=== PATIENT | female | born 1955 | race Hispanic/Latino ===

== ENCOUNTER 2018-06-14 09:31 | Observation (INO) | payer BC ==
[2018-06-14] MEDS ORDERED: Sodium Chloride 0.9% 1,000 ML IV STA (10:03)
--- NOTE | 2018-06-14 10:08 | ED PDOC ---
Arrival/HPI - General Chief Complaint: Abdominal Pain Time Seen by Provider: 06/14/18 10:03 Historian: Patient - History of Present Illness Narrative History of Present Illness (Text): 06/14/18 10:05 62 y/o female, pmh including htn, cholecystomy history, nkda, post menopausal, c/o upper abdominal pain with nausea started last night after dinner. Pt. stated that she has upper abdominal pain for over 6 months, more worsened last night, associated with nausea, no vomiting, no fever or chills, no headache or night sweat, no dizziness, no change in vision, no other medical or psychological complaints. Past Medical History - Provider Review Nursing Documentation Reviewed: Yes - Cardiac Hx Cardiac Disorders: Yes Hx Hypertension: Yes - Pulmonary Hx Respiratory Disorders: No - Neurological Hx Neurological Disorder: No - HEENT Hx HEENT Disorder: No - Renal Hx Renal Disorder: No - Endocrine/Metabolic Hx Endocrine Disorders: Yes Hx Diabetes Mellitus Type 2: Yes - Hematological/Oncological Hx Blood Disorders: No - Integumentary Hx Dermatological Disorder: No - Musculoskeletal/Rheumatological Hx Musculoskeletal Disorders: No - Gastrointestinal Hx Gastrointestinal Disorders: Yes Hx Fatty Liver Disease: Yes - Genitourinary/Gynecological Hx Genitourinary Disorders: No - Psychiatric Hx Psychophysiologic Disorder: No Hx Substance Use: No - Surgical History Hx Cholecystectomy: Yes Family/Social History - Physician Review Nursing Documentation Reviewed: Yes Family/Social History: Unknown Family HX Smoking Status: Never Smoked Hx Alcohol Use: No Hx Substance Use: No Allergies/Home Meds Allergies/Adverse Reactions: Allergies No Known Allergies Allergy (Verified 06/14/18 09:33) Home Medications: Home Meds Medication Instructions Recorded Confirmed Telmisartan/Hydrochlorothiazid 1 tab PO DAILY 06/14/18 06/14/18 [Micardis Hct 80-12.5 mg Tablet] Review of Systems - Review of Systems Constitutional: absent: Fatigue, Fevers Eyes: absent: Vision Changes ENT: absent: Hearing Changes Respiratory: absent: SOB, Cough Cardiovascular: absent: Chest Pain Gastrointestinal: Abdominal Pain, Nausea. absent: Diarrhea, Vomiting Musculoskeletal: absent: Arthralgias, Back Pain, Neck Pain Skin: absent: Rash, Pruritis Neurological: absent: Headache, Dizziness Psychiatric: absent: Anxiety, Depression, Suicidal Ideation Physical Exam Vital Signs Reviewed: Yes Vital Signs Temp Pulse Resp BP Pulse Ox 06/14/18 09:33 98.5 F 101 H 16 143/82 97 Temperature: Afebrile Blood Pressure: Normal Pulse: Tachycardic Respiratory Rate: Normal Appearance: Positive for: Well-Appearing, Non-Toxic, Comfortable Pain Distress: Moderate Mental Status: Positive for: Alert and Oriented X 3 - Systems Exam Head: Present: Atraumatic, Normocephalic Pupils: Present: PERRL Extroacular Muscles: Present: EOMI Conjunctiva: Present: Normal Mouth: Present: Moist Mucous Membranes Neck: Present: Normal Range of Motion Respiratory/Chest: Present: Clear to Auscultation, Good Air Exchange. No: R espiratory Distress, Accessory Muscle Use Cardiovascular: Present: Regular Rate and Rhythm, Normal S1, S2. No: Murmurs Abdomen: Present: Tenderness (epigastric and upper region). No: Distention, Peritoneal Signs, Rebound, Guarding, Hernias, Scars Back: Present: Normal Inspection Upper Extremity: Present: Normal Inspection. No: Cyanosis, Edema Lower Extremity: Present: Normal Inspection. No: Edema Neurological: Present: GCS=15, CN II-XII Intact, Speech Normal Skin: Present: Warm, Dry, Normal Color. No: Rashes Psychiatric: Present: Alert, Oriented x 3, Normal Insight, Normal Concentration Medical Decision Making ED Course and Treatment: 06/14/18 10:09 -Labs/ua -ekg -ct abdomen and pelvis -IVF/pepcid/zofran -Observe and reassess 06/14/18 13:33 -EKG: NSR @ 93 BPM, no ST elevation or depression, no T wave inversion -CT abdomen and pelvis: Mild thickening of the proximal gastric body can be seen with gastritis. Mild hazy change in the mesentery. This is a nonspecific finding which can be seen with mesenteric edema, lymphedema, hemorrhage and infiltration with inflammatory or neoplastic cells. -Labs show no acute findings except wbc 13 -Lipase is normal -Mg 1.6 (mgsu 1gm IV ordered) -Trop after 24 hours is negative -UA show no UTI -Pt. feels mildly better but still having pain, clinical suspicious of bleeding is low and likely gastritis (discussed and agreed by Dr. Lopez), hemodynamically stable, all labs and radiology studies discussed with the patient, recommend observation admission over night and GI consult on this case. Her pmd is Dr. Vega and doesn't come to this facility, paging Dr. Zamorano clinical rn liaison for admission. 06/14/18 13:40 -I spoke to Dr. Zamorano about this case/discussed about the labs/radiology result, agreed to admit to her service and routine consult with Dr. Tristen Cast for consult which I ordered. - Lab Interpretations I have reviewed the lab results: Yes - RAD Interpretation Radiology Orders: 06/14/18 10:03 ABD & PELVIS IV CONTRAST ONLY [CT] Stat Date of service: 06/14/2018 PROCEDURE: CT Abdomen and Pelvis with contrast HISTORY: vomiting/upper abdominal pain COMPARISON: None. TECHNIQUE: Contrast dose: 100 mL Omnipaque 350 Radiation dose: Total exam DLP = 361.62 mGy-cm. This CT exam was performed using one or more of the following dose reduction techniques: Automated exposure control, adjustment of the mA and/or kV according to patient size, and/or use of iterative reconstruction technique. FINDINGS: LOWER THORAX: Cardiomegaly. Coronary arterial and valvular calcifications. No focal consolidation or pleural effusion. LIVER: Hepatic steatosis. No gross lesion or ductal dilatation. GALLBLADDER AND BILE DUCTS: Prior cholecystectomy with surgical clips in place. PANCREAS: Unremarkable. No gross lesion or ductal dilatation. SPLEEN: Unremarkable. ADRENALS: Unremarkable. No mass. KIDNEYS AND URETERS: Unremarkable. No hydronephrosis. No solid mass. VASCULATURE: Unremarkable. No aortic aneurysm. Mild aortic atherosclerotic calcifications. BOWEL: Small hiatal hernia. Mild thickening of the proximal gastric body. Colonic diverticulosis. No obstruction. No gross mural thickening. APPENDIX: Normal appendix. PERITONEUM: Small fat containing umbilical hernia. Mild hazy change in the mesentery, nonspecific. No free fluid. No free air. LYMPH NODES: Unremarkable. No enlarged lymph nodes. BLADDER: Unremarkable. REPRODUCTIVE: Unremarkable. BONES: No acute fracture. OTHER FINDINGS: None. IMPRESSION: Mild thickening of the proximal gastric body can be seen with gastritis. Mild hazy change in the mesentery. This is a nonspecific finding which can be s een with mesenteric edema, lymphedema, hemorrhage and infiltration with inflammatory or neoplastic cells. Data Migration Consultant: Radiologist - EKG Interpretation EKG Interpretation (Text): 06/14/18 10:26 NSR @ 93 BPM, no ST elevation or depression, no T wave inversion Interpreted by ED Physician: Yes Type: 12 lead EKG - Medication Orders Current Medication Orders: Famotidine (Pepcid) 20 mg IVP STAT STA Stop: 06/14/18 10:04 Sodium Chloride (Sodium Chloride 0.9%) 1,000 mls @ 999 mls/hr IV .Q1H1M STA Stop: 06/14/18 11:03 Ondansetron HCl (Zofran Inj) 4 mg IVP STAT STA Stop: 06/14/18 10:04 - PA / UPS DRIVER / Resident Statement MD/DO has reviewed & agrees with the documentation as recorded. Disposition/Present on Arrival - Present on Arrival Any Indicators Present on Arrival: No History of DVT/PE: No History of Uncontrolled Diabetes: No Urinary Catheter: No History of Decub. Ulcer: No History Surgical Site Infection Following: None - Disposition Have Diagnosis and Disposition been Completed?: Yes Diagnosis: Hypomagnesemia, Leukocytosis, Abnormal CT of the abdomen, Gastritis Disposition: HOSPITALIZED Disposition Time: 13:35 Patient Plan: Admission, Observation Patient Problems: Current Active Problems Problem Status Onset Hypomagnesemia Acute Leukocytosis Acute Abnormal CT of the abdomen Acute Gastritis Acute Condition: STABLE Referrals: Kirk Vega MD [Primary Care Provider] - Follow up with primary Forms: [employer] (Spanish)
[2018-06-14 10:29] LABS: EOS % 0.2 % (1.5-5.0); GRAN # 11.56 (1.4-6.5); GRAN % 89.1 % (50.0-68.0); HEMOGLOBIN 15.9 g/dL (12.0-16.0); LYMPH # 1.1 (1.2-3.4); LYMPH % 8.5 % (22.0-35.0); MEAN CELL VOLUME 82.1 fl (80.0-105.0); MEAN CORPUSCULAR HEMOGLOBIN 28.4 pg (25.0-35.0); MEAN CORPUSCULAR HGB CONC 34.6 g/dl (31.0-37.0); MEAN PLATELET VOLUME 8.8 fl (7.0-11.0); MONO # 0.3 (0.1-0.6); MONO % 2.2 % (1.0-6.0); RBC 5.6 10^6/uL (3.5-6.1); RED CELL DISTRIBUTION WIDTH 12.8 % (11.5-14.5)
[2018-06-14 10:39] LABS: PH,URINE 5.5 (4.7-8.0); URINE BILIRUBIN NEGATIVE (NEGATIVE); URINE BLOOD NEGATIVE (NEGATIVE); URINE GLUCOSE (UA) 250 mg/dL (NEGATIVE); URINE LEUKOCYTE ESTERASE NEGATIVE Leu/uL (NEGATIVE); URINE PROTEIN NEGATIVE mg/dL (<30 mg/dL); URINE UROBILINOGEN 0.2 E.U./dL (<1 E.U./dL)
[2018-06-14 10:41] LABS: URINE APPEARANCE CLEAR (CLEAR); URINE COLOR YELLOW (YELLOW)
[2018-06-14 10:52] LABS: ALB/GLOB RATIO 1.1 (1.1-1.8); ALBUMIN 4.3 g/dL (3.0-4.8); ALT/SGPT 52 U/L (7-56); AST/SGOT 35 U/L (14-36); BLOOD UREA NITROGEN 19 mg/dL (7-21); CALCIUM 9.1 mg/dL (8.4-10.5); GFR NON-AFRICAN AMERICAN > 60; LIPASE 71 U/L (23-300)
[2018-06-14 11:02] LABS: TROPONIN I < 0.01 ng/mL
[2018-06-14] MEDS ORDERED: Magnesium Sulfate 1 gm in D5W 1 GM/100 ML BAG IVPB ONE (11:09)
[2018-06-14] MEDS ORDERED: Iohexol 350 MG/100 ML VIAL ONE (12:29)
--- NOTE | 2018-06-14 13:14 | CT ---
Date of service: 06/14/2018 PROCEDURE: CT Abdomen and Pelvis with contrast HISTORY: vomiting/upper abdominal pain COMPARISON: None. TECHNIQUE: Contrast dose: 100 mL Omnipaque 350 Radiation dose: Total exam DLP = 361.62 mGy-cm. This CT exam was performed using one or more of the following dose reduction techniques: Automated exposure control, adjustment of the mA and/or kV according to patient size, and/or use of iterative reconstruction technique. FINDINGS: LOWER THORAX: Cardiomegaly. Coronary arterial and valvular calcifications. No focal consolidation or pleural effusion. LIVER: Hepatic steatosis. No gross lesion or ductal dilatation. GALLBLADDER AND BILE DUCTS: Prior cholecystectomy with surgical clips in place. PANCREAS: Unremarkable. No gross lesion or ductal dilatation. SPLEEN: Unremarkable. ADRENALS: Unremarkable. No mass. KIDNEYS AND URETERS: Unremarkable. No hydronephrosis. No solid mass. VASCULATURE: Unremarkable. No aortic aneurysm. Mild aortic atherosclerotic calcifications. BOWEL: Small hiatal hernia. Mild thickening of the proximal gastric body. Colonic diverticulosis. No obstruction. No gross mural thickening. APPENDIX: Normal appendix. PERITONEUM: Small fat containing umbilical hernia. Mild hazy change in the mesentery, nonspecific. No free fluid. No free air. LYMPH NODES: Unremarkable. No enlarged lymph nodes. BLADDER: Unremarkable. REPRODUCTIVE: Unremarkable. BONES: No acute fracture. OTHER FINDINGS: None. IMPRESSION: Mild thickening of the proximal gastric body can be seen with gastritis. Mild hazy change in the mesentery. This is a nonspecific finding which can be seen with mesenteric edema, lymphedema, hemorrhage and infiltration with inflammatory or neoplastic cells.
[2018-06-14] MEDS ORDERED: Morphine 4 mg/ml ISec IVP STA (13:30)
[2018-06-14] MEDS: Sodium Chloride 0.9% 1,000 ML IV SCH (13:45)
[2018-06-14 18:05] VITALS: BMI 25.4
[2018-06-14] MEDS ORDERED: Influenza Vaccine 60 mcg/0.5 mL SYR (4YR UP) IM ONE (18:05)
[2018-06-14] MEDS ORDERED: Pneumococcal 23-Valent Vaccine IM ONE (18:05)
[2018-06-14] MEDS ORDERED: HYDROmorphone 0.5 mg/0.5 ml ISec IVP PRN (19:48)
[2018-06-15] MEDS: Sodium Chloride 0.9% 1,000 ML IV SCH ×3 (06:23→21:40)
--- NOTE | 2018-06-15 09:34 | CARD ---
APPROVED REPORT Date of service: 06/14/2018 EKG Measurement Heart [id number] <Conclusion> Normal sinus rhythm Inferior infarct, age undetermined NSSTW changes Prolonged QTc
--- NOTE | 2018-06-15 14:56 | CP.PCM.CON ---
<Courtney Easley - Last Filed: 06/15/18 14:56> History of Present Illness - History of Present Illness History of Present Illness: Surgery: Dr. Rao Reason for consult: possible SBO CC: epigastric pain, discomfort after eating HPI: Patient is a 62 y/o F who presented to ER complaining of persistent epigastric discomfort/pain that started last night after eating a sea [employer] dinne r. She states the pain has been present for a few months but acutely got worse after her meal last night. She reports associated nausea but denies vomiting. She reports passing flatus as well as belching and also reports normal bowel movements. She denies diarrhea, fever, or chills. She reports about a 7-10lbs weight loss over the pass year which she attributes to her diet change to pescetarian. She denies having prior EGD or colonoscopy. Currently, she states her symptoms have improved and she is tolerating the regular diet ordered for her w/o n/v. She denies having prior symptoms of reflux or gastritis requiring OTC acid reducing medication. PMH: HTN PSH: partial hysterectomy, lap raquel NKDA Social: social tobacco use as a young adult (20s) but denies recent/current use, social ETOH use current, denies drug use Review of Systems - Review of Systems All systems: reviewed and no additional remarkable complaints except Review of Systems: unless stated in HPI - Constitutional Constitutional: absent: Anorexia, Chills, Fever, Night Sweats - EENT Eyes: absent: Blurred Vision, Change in Vision Nose/Mouth/Throat: absent: Epistaxis, Nasal Congestion - Breasts Breasts: absent: Change in Shape, Mass - Cardiovascular Cardiovascular: absent: Chest Pain, Edema - Respiratory Respiratory: absent: Cough, Wheezing - Gastrointestinal Gastrointestinal: Abdominal Pain, Belching, Nausea. absent: Bloating, Change in Bowel Habits, Change in Stool Character, Constipation, Cramping, Diarrhea, Dyspepsia, Dysphagia, Early Satiety, Excessive Flatus, Heartburn, Hematemesis, Hematochezia, Melena, Vomiting - Genitourinary Genitourinary: absent: Hematuria, Pyuria - Reproductive: Female Reproductive:Female: Amenorrhea - Menstruation Menstruation: S/P Hysterectomy - Musculoskeletal Musculoskeletal: absent: Back Pain, Neck Pain - Integumentary Integumentary: absent: Rash, Wounds - Neurological Neurological: absent: Dizziness, Headaches - Psychiatric Psychiatric: absent: Anxiety, Behavioral Changes, Change in Appetite - Endocrine Endocrine: absent: Change in Body Appearance, Change in Libido, Excessive Sweating, Palpitations, Polydipsia, Polyphagia - Hematologic/Lymphatic Hematologic: absent: Easy Bleeding, Easy Bruising Past Patient History - Past Social History Smoking Status: Former Smoker - CARDIAC Hx Cardiac Disorders: Yes Hx Hypertension: Yes - PULMONARY Hx Respiratory Disorders: Yes (USED TO SMOKE IN HER TEENS.QUIT) - NEUROLOGICAL Hx Neurological Disorder: No - HEENT Hx HEENT Problems: No - RENAL Hx Chronic Kidney Disease: No - ENDOCRINE/METABOLIC Hx Endocrine Disorders: Yes Hx Diabetes Mellitus Type 2: Yes - HEMATOLOGICAL/ONCOLOGICAL Hx Blood Disorders: No - INTEGUMENTARY Hx Dermatological Problems: No - MUSCULOSKELETAL/RHEUMATOLOGICAL Hx Musculoskeletal Disorders: No Hx Falls: No - GASTROINTESTINAL Hx Gastrointestinal Disorders: Yes (GASTRITIS 06-14-18) Other/Comment: FATTY LIVER - GENITOURINARY/GYNECOLOGICAL Hx Genitourinary Disorders: Yes (HYSTERECTOMY) - PSYCHIATRIC Hx Psychophysiologic Disorder: No Hx Substance Use: No - SURGICAL HISTORY Hx Surgeries: Yes Hx Cholecystectomy: Yes Hx Hysterectomy: Yes Meds Allergies/Adverse Reactions: Allergies Allergy/AdvReac Type Severity Reaction Status Date / Time No Known Allergies Allergy Verified 06/14/18 14:30 - Medications Medications: Current Medications Acetaminophen (Tylenol 325mg Tab) 650 mg PO Q4H PRN PRN Reason: pain fever Aspirin (Aspirin Chewable) 81 mg PO DAILY [facility] Last Admin: 06/15/18 09:08 Dose: 81 mg Hydrochlorothiazide (Microzide) 12.5 mg PO DAILY [facility] Last Admin: 06/15/18 09:09 Dose: 12.5 mg Hydromorphone HCl (Dilaudid) 0.5 mg IVP Q4H PRN PRN Reason: Pain, Mild (1-3) Sodium Chloride (Sodium Chloride 0.9%) 1,000 mls @ 100 mls/hr IV .Q10H [facility] Last Admin: 06/15/18 09:10 Dose: 100 mls/hr Losartan Potassium (Cozaar) 100 mg PO DAILY [facility] Last Admin: 06/15/18 09:08 Dose: 100 mg Ondansetron HCl (Zofran Inj) 4 mg IVP Q6 PRN PRN Reason: Nausea/Vomiting Pantoprazole Sodium (Protonix Inj) 40 mg IVP DAILY [facility] Last Admin: 06/15/18 09:09 Dose: 40 mg Physical Exam - Constitutional Appears: Well, Non-toxic, No Acute Distress - Head Exam Head Exam: ATRAUMATIC, NORMOCEPHALIC - Eye Exam Eye Exam: EOMI, Normal appearance - ENT Exam ENT Exam: Mucous Membranes Moist - Neck Exam Neck exam: Negative for: Lymphadenopathy - Respiratory Exam Respiratory Exam: Clear to Auscultation Bilateral, NORMAL BREATHING PATTERN. absent: Respiratory Distress - Cardiovascular Exam Cardiovascular Exam: REGULAR RHYTHM. absent: Tachycardia - GI/Abdominal Exam GI & Abdominal Exam: Soft. absent: Distended, Guarding, Hernia, Rebound, Rigid, Tenderness - Rectal Exam Rectal Exam: Deferred - Extremities Exam Extremities exam: Positive for: normal inspection. Negative for: calf tenderness - Neurological Exam Neurological exam: Alert, Oriented x3 - Psychiatric Exam Psychiatric exam: Normal Affect, Normal Mood - Skin Skin Exam: Dry, Normal Color, Warm Results - Vital Signs Recent Vital Signs: Last Vital Signs Temp 97.5 F L 06/15/18 06:00 Pulse 85 06/15/18 06:00 Resp 18 06/15/18 06:00 BP 128/84 06/15/18 06:00 Pulse Ox 98 06/15/18 06:00 - Labs Result Diagrams: 06/14/18 10:10 06/14/18 10:10 Assessment & Plan - Assessment and Plan (Free Text) Assessment: 62 y/o female w/ acute worsening of chronic epigastric pain, gastritis vs enteritis Plan: -CT findings concerning for inflammation r/o neoplasm at greater curve of stomach, no evidence of intestinal obstruction -patient clinically not obstructed as she is passing flatus, +BM, and tolerating diet -cont diet as tolerated -recommending EGD and Colonoscopy considering chronic symptoms and CT scan findings -no acute surgical intervention at this time -further recs per Dr. Rao [facility], [place] PGY4 <Serene Arechiga V - Last Filed: 06/15/18 17:38> Meds - Medications Medications: Current Medications Acetaminophen (Tylenol 325mg Tab) 650 mg PO Q4H PRN PRN Reason: pain fever Aspirin (Aspirin Chewable) 81 mg PO DAILY [facility] Last Admin: 06/15/18 09:08 Dose: 81 mg Hydrochlorothiazide (Microzide) 12.5 mg PO DAILY [facility] Last Admin: 06/15/18 09:09 Dose: 12.5 mg Hydromorphone HCl (Dilaudid) 0.5 mg IVP Q4H PRN PRN Reason: Pain, Mild (1-3) Sodium Chloride (Sodium Chloride 0.9%) 1,000 mls @ 100 mls/hr IV .Q10H [facility] Last Admin: 06/15/18 09:10 Dose: 100 mls/hr Losartan Potassium (Cozaar) 100 mg PO DAILY [facility] Last Admin: 06/15/18 09:08 Dose: 100 mg Ondansetron HCl (Zofran Inj) 4 mg IVP Q6 PRN PRN Reason: Nausea/Vomiting Pantoprazole Sodium (Protonix Inj) 40 mg IVP DAILY [facility] Last Admin: 06/15/18 09:09 Dose: 40 mg Results - Vital Signs Recent Vital Signs: Last Vital Signs Temp 98.6 F 06/15/18 16:38 Pulse 84 06/15/18 16:38 Resp 20 06/15/18 16:38 BP 130/89 06/15/18 16:38 Pulse Ox 95 06/15/18 16:38 - Labs Result Diagrams: 06/14/18 10:10 06/14/18 10:10 Attending/Attestation - Attestation I have personally seen and examined this patient.: Yes I have fully participated in the care of the patient.: Yes I have reviewed all pertinent clinical information: Yes Notes (Text): This is an addendum to GI consult report dictated by the GI Fellow.The patient was seen and examined earlier. Medical records, lab studies, imagings were revi ewed. Last 24 hours events reviewed. Agreed with the above treatment plan as outlined in GI Fellow 's notes with the addition of the following this patient was admitted with acute onset abdominal pain history of occasional cramping discomfort No fever Never had EGD or colonoscopy CT scan was reviewed loops of dilated small bowel seen in the lower abdo more towards the rightside, mild mesenteric edema nonspecific, distended stomach mild thickening of the gastric wall in the body Patient is presently on regular diet Rule out partial small bowel obstruction rule out gastric lesion Would recommend surgical consult EGD in the a.m. Elective colonoscopy evaluation Would consider MRV to further evaluate small bowel after reviewing the above workup 06/15/18 17:34
--- NOTE | 2018-06-15 16:55 | CP.PCM.CON ---
<Gina Carter - Last Filed: 06/15/18 16:52> History of Present Illness - History of Present Illness History of Present Illness: GI Fellow PGY5 Consult Note This is a 62 y/o F who presented to ER complaining of persistent epigastric discomfort/pain that started last night after eating dinner. She reports eating [place] ad no one else in her family got sick. She states she has a similar discomfort/pain present for few months but got worse last night. She reports passing flatus as well as belching and also reports normal bowel movements. She denies diarrhea, fever, or chills. She denies having prior EGD or colonoscopy. Currently, she states her symptoms have improved and she is tolerating the regular diet ordered for her w/o n/v. ROS: A 12pt ROS was negative except as above PMH: As stated in HPI PSH: partial hysterectomy, lap raquel SHx: social tobacco use as a young adult (20s) but denies recent/current use, social ETOH use current, denies drug use FHx: Neg for colon/gastric cancer Past Patient History - Past Social History Smoking Status: Former Smoker - CARDIAC Hx Cardiac Disorders: Yes Hx Hypertension: Yes - PULMONARY Hx Respiratory Disorders: Yes (USED TO SMOKE IN HER TEENS.QUIT) - NEUROLOGICAL Hx Neurological Disorder: No - HEENT Hx HEENT Problems: No - RENAL Hx Chronic Kidney Disease: No - ENDOCRINE/METABOLIC Hx Endocrine Disorders: Yes Hx Diabetes Mellitus Type 2: Yes - HEMATOLOGICAL/ONCOLOGICAL Hx Blood Disorders: No - INTEGUMENTARY Hx Dermatological Problems: No - MUSCULOSKELETAL/RHEUMATOLOGICAL Hx Musculoskeletal Disorders: No Hx Falls: No - GASTROINTESTINAL Hx Gastrointestinal Disorders: Yes (GASTRITIS 06-14-18) Other/Comment: FATTY LIVER - GENITOURINARY/GYNECOLOGICAL Hx Genitourinary Disorders: Yes (HYSTERECTOMY) - PSYCHIATRIC Hx Psychophysiologic Disorder: No Hx Substance Use: No - SURGICAL HISTORY Hx Surgeries: Yes Hx Cholecystectomy: Yes Hx Hysterectomy: Yes Meds Allergies/Adverse Reactions: Allergies Allergy/AdvReac Type Severity Reaction Status Date / Time No Known Allergies Allergy Verified 06/14/18 14:30 - Medications Medications: Current Medications Acetaminophen (Tylenol 325mg Tab) 650 mg PO Q4H PRN PRN Reason: pain fever Aspirin (Aspirin Chewable) 81 mg PO DAILY [facility] Last Admin: 06/15/18 09:08 Dose: 81 mg Hydrochlorothiazide (Microzide) 12.5 mg PO DAILY [facility] Last Admin: 06/15/18 09:09 Dose: 12.5 mg Hydromorphone HCl (Dilaudid) 0.5 mg IVP Q4H PRN PRN Reason: Pain, Mild (1-3) Sodium Chloride (Sodium Chloride 0.9%) 1,000 mls @ 100 mls/hr IV .Q10H [facility] Last Admin: 06/15/18 09:10 Dose: 100 mls/hr Losartan Potassium (Cozaar) 100 mg PO DAILY [facility] Last Admin: 06/15/18 09:08 Dose: 100 mg Ondansetron HCl (Zofran Inj) 4 mg IVP Q6 PRN PRN Reason: Nausea/Vomiting Pantoprazole Sodium (Protonix Inj) 40 mg IVP DAILY [facility] Last Admin: 06/15/18 09:09 Dose: 40 mg Physical Exam - Constitutional Appears: Non-toxic, No Acute Distress - Head Exam Head Exam: ATRAUMATIC, NORMAL INSPECTION, NORMOCEPHALIC - Eye Exam Eye Exam: EOMI, Normal appearance, PERRL Pupil Exam: PERRL - ENT Exam ENT Exam: Mucous Membranes Moist - Neck Exam Neck exam: Positive for: Normal Inspection - Respiratory Exam Respiratory Exam: Clear to Auscultation Bilateral, NORMAL BREATHING PATTERN - Cardiovascular Exam Cardiovascular Exam: RRR, +S1, +S2 - GI/Abdominal Exam GI & Abdominal Exam: Normal Bowel Sounds, Soft, Tenderness - Extremities Exam Extremities exam: Positive for: normal inspection - Back Exam Back exam: NORMAL INSPECTION - Neurological Exam Neurological exam: Alert, Oriented x3 - Psychiatric Exam Psychiatric exam: Normal Affect, Normal Mood - Skin Skin Exam: Dry, Intact, Normal Color, Warm Results - Vital Signs Recent Vital Signs: Last Vital Signs Temp 98.6 F 06/15/18 16:38 Pulse 84 06/15/18 16:38 Resp 20 06/15/18 16:38 BP 130/89 06/15/18 16:38 Pulse Ox 95 06/15/18 16:38 - Labs Result Diagrams: 06/14/18 10:10 06/14/18 10:10 Assessment & Plan - Assessment and Plan (Free Text) Assessment: 1. Abdominal pain ddx-PUD, gastritis, esophagitis, H.pylori 2. Dilated Small bowel loops r/o partial SBO Plan: -Continue supportive care with pain control and anti-emetics -CT imaging reviewed with thickening of gastric wall and dilated Small bowel -Recommend surgery cs to r/o SBO partial -Diet as tolerated -Pepcid daily -Pt will need outpt MRE and EGD/colonoscopy -Will continue to follow closely <Serene Arechiga V - Last Filed: 06/15/18 17:46> Meds - Medications Medications: Current Medications Acetaminophen (Tylenol 325mg Tab) 650 mg PO Q4H PRN PRN Reason: pain fever Aspirin (Aspirin Chewable) 81 mg PO DAILY [facility] Last Admin: 06/15/18 09:08 Dose: 81 mg Hydrochlorothiazide (Microzide) 12.5 mg PO DAILY [facility] Last Admin: 06/15/18 09:09 Dose: 12.5 mg Hydromorphone HCl (Dilaudid) 0.5 mg IVP Q4H PRN PRN Reason: Pain, Mild (1-3) Sodium Chloride (Sodium Chloride 0.9%) 1,000 mls @ 100 mls/hr IV .Q10H [facility] Last Admin: 06/15/18 09:10 Dose: 100 mls/hr Losartan Potassium (Cozaar) 100 mg PO DAILY [facility] Last Admin: 06/15/18 09:08 Dose: 100 mg Ondansetron HCl (Zofran Inj) 4 mg IVP Q6 PRN PRN Reason: Nausea/Vomiting Pantoprazole Sodium (Protonix Inj) 40 mg IVP DAILY [facility] Last Admin: 06/15/18 09:09 Dose: 40 mg Results - Vital Signs Recent Vital Signs: Last Vital Signs Temp 98.6 F 06/15/18 16:38 Pulse 84 06/15/18 16:38 Resp 20 06/15/18 16:38 BP 130/89 06/15/18 16:38 Pulse Ox 95 06/15/18 16:38 - Labs Result Diagrams: 06/14/18 10:10 06/14/18 10:10 Attending/Attestation - Attestation I have personally seen and examined this patient.: Yes I have fully participated in the care of the patient.: Yes I have reviewed all pertinent clinical information: Yes Notes (Text): This is an addendum to GI consult report dictated by the GI Fellow.The patient was seen and examined earlier. Medical records, lab studies, imagings were reviewed. Last 24 hours events reviewed. Agreed with the above treatment plan as outlined in GI Fellow 's notes with the addition of the following this patient was admitted with acute onset of nauea and abdominal pain History of intermittent mild cramping discomfort in the past Never had EGD or colonoscopy On examination abdomen soft bowel sounds normal no mass CT scan was reviewed, dilated loops of small bowel seen in the lower abdomen and right side Mesenteric edema note, distended stomach some thickening of the gastric body Patient has already been given solid food, if symptomatic we will change it to clear liquids Surgical follow-up planned for EGD in the a.m. Consider further evaluation including MRE after EGD , colonoscopy evaluation and based on clinical course 06/15/18 17:41
--- NOTE | 2018-06-16 01:30 | HP ---
DATE OF EXAM: 06/15/2018 CHIEF COMPLAINT: Abdominal pain. HISTORY OF PRESENT ILLNESS: Ms. Nya Bañuelos is a 62-year-old female with past medical history of hypertension, cholecystectomy, and postmenopausal came complaining of upper abdominal pain and nausea started last night after dinner. Patient states that she has upper abdominal pain for over 6 months, more worse in the last night associated with nausea and no vomiting, no fever or chills, no headache and no night sweats. No hematuria. No hematochezia. No other medical or psychological problems. was sitting on the bedside. Discussion done with the patient. PAST MEDICAL HISTORY: Hypertension, diabetes mellitus, fatty liver, cholecystectomy. FAMILY HISTORY: Father and mother, non-contributory. HABIT: Never smoked. No drugs. No ethanol. ALLERGIES: PATIENT NOT ALLERGIC WITH ANY MEDICATION. HOME MEDICATIONS: Hydrochlorothiazide, losartan, REVIEW OF SYSTEMS: Patient was seen and examined on the bedside. Did bowel movement. Have food. was sitting on the bedside also. No too much abdominal pain, but has little bit. No fever. No chills. No shortness of breath. No chest pain. PAST MEDICAL HISTORY: Abdominal pain, nausea, and vomiting, but this moment no diarrhea or vomiting. No fever. No chills. No headache. No dizziness. PHYSICAL EXAMINATION: VITALS: Temperature 98.5; heart rate 101; respiratory rate 16; blood pressure 147/82, and pulse oximetry 97. HEENT: Head normocephalic and atraumatic. Eyes, PERRLA. Extraocular muscles intact. Conjunctivae clear. Nose patent. Mucous membrane moist. NECK: Supple. No carotid bruit. No JVD or thyromegaly. CHEST: Bilaterally symmetrical. HEART: S1 and S2 positive. LUNGS: Clear to auscultation. ABDOMEN: Soft and tender around epigastric and upper region. No distention. No peritoneal signs. EXTREMITIES: No edema. No cyanosis. NEUROLOGIC: Patient is awake and alert, moving all four extremities. No focal deficit. LABORATORY DATA: White blood cell 13.0, hemoglobin 15.9, hematocrit 46.0, and platelets 294,000. Sodium 136 and potassium 4.1. BUN 90, creatinine 0.5, and glucose 262. Magnesium 1.6. ASSESSMENT AND PLAN: Ms. Nya Bañuelos is a 62-year-old lady with leukocytosis, hyperglycemia, hypomagnesemia, and glucosuria came with abdominal pain. CAT scan of abdomen and pelvis done showed mild thickening of the proximal gastric body can be seen, seen gastritis, mild hazy changes in the mesentery. This is a nonspecific finding, which can be seen in the mesenteric edema and lymphedema, hemorrhage and infiltration of the inflammatory or neoplastic cells. Gastroenterology and surgical consult called. Patient is nurse by herself. done with her. Reviewed notes of surgery, possibly small bowel obstruction or partial, but has worsening chronic epigastric pain now, gastritis versus enteritis. Clinically, patient not obstructed. She has flatus, did bowel movement, tolerated diet. Continue diet as tolerated. Recommended esophagogastroduodenoscopy and colonoscopy depending on that mushroom cutter's opinion. Discussion done with patient and . Repeat labs. We will follow up. Katie Zamorano MD MTDD
[2018-06-16 06:31] LABS: MEAN CELL VOLUME 83.1 fl (80.0-105.0); MEAN CORPUSCULAR HEMOGLOBIN 28.1 pg (25.0-35.0); MEAN CORPUSCULAR HGB CONC 33.8 g/dl (31.0-37.0); RBC 5.34 10^6/uL (3.5-6.1); RED CELL DISTRIBUTION WIDTH 13.2 % (11.5-14.5); WHITE BLOOD COUNT 7.8 10^3/uL (4.5-11.0)
[2018-06-16 07:52] LABS: BLOOD UREA NITROGEN 11 mg/dL (7-21); GFR NON-AFRICAN AMERICAN > 60
[2018-06-16 07:53] LABS: CALCIUM 8.6 mg/dL (8.4-10.5); HDL CHOLESTEROL 29 mg/dL (29-60); LDL CHOLESTEROL 120 mg/dL (0-129)
[2018-06-16 08:10] LABS: % IRON SATURATION 15 % (20-55); IRON 46 ug/dL (45-180); TOTAL IRON BINDING CAPACITY 308 ug/dL (265-497)
[2018-06-16 12:36] LABS: FOLATE 7.4 ng/mL
[2018-06-16 13:43] VITALS: TEMP 97.9
[2018-06-16] MEDS ORDERED: Sodium Chloride 0.9% 1,000 ML IV SCH (14:30)
[2018-06-16] MEDS ORDERED: Propofol 10 mg/ml Inj (20 ML) ONE (14:33)
--- NOTE | 2018-06-16 14:42 | CP.PCM.PN ---
Subjective - Date & Time of Evaluation Date of Evaluation: 06/16/18 Time of Evaluation: 14:39 - Subjective Subjective: General Surgery Progress Note for Dr. Rao This 62F was seen and examined this AM at bedside no acute events overnight. She was NPO denies any abdominal pain still having flatus. Going for an EGD today. Objective - Vital Signs/Intake and Output Vital Signs (last 24 hours): Temp Pulse Resp BP Pulse Ox 97.9 F 98 H 18 131/71 100 06/16/18 13:39 06/16/18 13:39 06/16/18 13:39 06/16/18 13:39 06/16/18 14:19 Intake and Output: 06/16/18 06/16/18 06:59 18:59 Intake Total 1200 Balance 1200 - Medications Medications: Current Medications Acetaminophen (Tylenol 325mg Tab) 650 mg PO Q4H PRN PRN Reason: pain fever Aspirin (Aspirin Chewable) 81 mg PO DAILY [facility] Last Admin: 06/16/18 09:02 Dose: 81 mg Hydrochlorothiazide (Microzide) 12.5 mg PO DAILY [facility] Last Admin: 06/16/18 09:02 Dose: 12.5 mg Hydromorphone HCl (Dilaudid) 0.5 mg IVP Q4H PRN PRN Reason: Pain, Mild (1-3) Sodium Chloride (Sodium Chloride 0.9%) 1,000 mls @ 100 mls/hr IV .Q10H [facility] Last Admin: 06/15/18 21:40 Dose: 100 mls/hr Sodium Chloride (Sodium Chloride 0.9%) 1,000 mls @ 75 mls/hr IV .[id number] [facility] Stop: 06/16/18 16:31 Losartan Potassium (Cozaar) 100 mg PO DAILY [facility] Last Admin: 06/16/18 09:02 Dose: 100 mg Ondansetron HCl (Zofran Inj) 4 mg IVP Q6 PRN PRN Reason: Nausea/Vomiting Pantoprazole Sodium (Protonix Ec Tab) 40 mg PO ACB [facility] - Labs Labs: 06/16/18 05:45 06/16/18 05:45 - Constitutional Appears: Well, Non-toxic, No Acute Distress - Head Exam Head Exam: ATRAUMATIC, NORMOCEPHALIC - Eye Exam Eye Exam: EOMI, Normal appearance - ENT Exam ENT Exam: Mucous Membranes Moist - Neck Exam Neck exam: Negative for: Lymphadenopathy - Respiratory Exam Respiratory Exam: Clear to Auscultation Bilateral, NORMAL BREATHING PATTERN. absent: Respiratory Distress - Cardiovascular Exam Cardiovascular Exam: REGULAR RHYTHM. absent: Tachycardia - GI/Abdominal Exam GI & Abdominal Exam: Soft. absent: Distended, Guarding, Hernia, Rebound, Rigid, Tenderness - Rectal Exam Rectal Exam: Deferred - Extremities Exam Extremities exam: Positive for: normal inspection. Negative for: calf t enderness - Neurological Exam Neurological exam: Alert, Oriented x3 - Psychiatric Exam Psychiatric exam: Normal Affect, Normal Mood - Skin Skin Exam: Dry, Normal Color, Warm Assessment and Plan - Assessment and Plan (Free Text) Assessment: 62 y/o female w/ acute worsening of chronic epigastric pain, gastritis vs en teritis CT findings concerning for inflammation r/o neoplasm at greater curve of stomach, no evidence of intestinal obstruction Plan: -F/U EGD/Colonoscopy -cont diet as tolerated -no acute surgical intervention at this time -further recs per Dr. Jalen Hampton PGY3
[2018-06-16 15:51] VITALS: O2SAT 100
[2018-06-16 15:54] VITALS: BP 120/62; PULSE 67; RESP 16
--- NOTE | 2018-06-17 05:46 | CON ---
DATE: 06/16/2018 The patient is in room 360, bed 1. REASON FOR CONSULTATION: Abnormal EKG. Patient admitted with abdominal pain, history of hypertension, and diabetes mellitus. HISTORY OF PRESENT ILLNESS: The patient is a 62-year-old female, known case of hypertension about 10 years, diabetes of about 5 years and 6 months' history of epigastric pain off and on, but prior to admission, she had dinner and she got severe pain in the epigastric area with nausea feeling and patient came to the hospital. Patient denies any chest pain, palpitations, shortness of breath associated with that. Patient states that she also has problems when she eats, she goes to bathroom and that started after gallbladder surgery about 3 years ago in 2014. PAST MEDICAL HISTORY: Patient has history of cholecystectomy and hysterectomy. PERSONAL HISTORY: No smoking. No drinking. ALLERGIES: PATIENT DENIES ANY ALLERGIES. FAMILY HISTORY: Mother had coronary artery disease and high blood pressure. HOME MEDICATIONS: Patient was on aspirin 81 mg daily, Micardis with hydrochlorothiazide 80-12.5 mg one daily, Protonix 40 daily. REVIEW OF SYSTEMS: All the systems reviewed, positives mentioned in the history. The patient never had any exertional chest pain or history of any cardiac problems. PHYSICAL EXAMINATION: VITAL SIGNS: Blood pressure 120/62, respirations 16, pulse , and temperature 97.9. HEENT: Head is normocephalic. Eyes, pupils normal. Conjunctivae normal. Nose and throat, normal. NECK: JVP low. Carotids equal. THORAX: AP diameter normal. LUNGS: Clear. CARDIOPULMONARY: S1 and S2. ABDOMEN: Tenderness in the epigastrium. No organomegaly. Bowel sounds normal. EXTREMITIES: No clubbing. No cyanosis. LABORATORY DATA: WBC 7.8 on admission, was 13; hemoglobin 15; hematocrit 44.4; platelets 272. Sodium 141, potassium 3.7, BUN 11, creatinine 0.5. Random glucose 142. Triglyceride 129, cholesterol 175, LDL 120, HDL 29. DIAGNOSTICS: EKG showed regular sinus rhythm with Q in lead III and aVF suggestive of old inferior wall SC. Abdomen and pelvis CAT scan showed mild thickening of the proximal gastric body, can be seen with gastritis, mild hazy changes in the mesentery which is a nonspecific finding, can be with mesenteric edema, lymphedema, hemorrhage and infiltration with inflammatory or neoplastic cells. DIAGNOSES: 1. Abdominal pain. 2. Abnormal EKG suggestive of old inferior wall myocardial infarction, but the patient does not have any history of myocardial infarction or any exertional chest pain. 3. Diabetes mellitus. 4. Hypertension. 5. History of cholecystectomy. PLAN: The patient's EKG shows Q in III and aVF, but the patient has no history of SC. Denies any exertional chest pain. So, clinically at this moment, cardiac state is stable. Patient can go for endoscopy or any other procedure from cardiac point of view as moderate risk. Patient has still hypertension, diabetes mellitus. We will do nuclear stress test after the patient's GI symptoms are resolved. Patient is on aspirin 81 mg daily, losartan 100 mg daily, hydrochlorothiazide 12.5 mg daily, and Protonix 40 daily. The patient is also getting IV fluids. We will continue present therapy and will follow. Ammon Martinez MD
[2018-06-17] MEDS ORDERED: Pantoprazole 40 mg EC Tab PO SCH (07:30)
== END 2018-06-16 19:05 | disposition home or self-care (01) ==
LOC: ED 09:31 → ERH 13:42 → 3RNO 16:09
PROVIDERS: ADMIT Internal Medicine; ATTEND Internal Medicine
DX: D72.829 Elevated white blood cell count, unspecified (principal); E11.65 Type 2 diabetes mellitus with hyperglycemia; E83.42 Hypomagnesemia; G89.29 Other chronic pain; I10 Essential (primary) hypertension; I25.2 Old myocardial infarction; K76.0 Fatty (change of) liver, not elsewhere classified; Z87.891 Personal history of nicotine dependence; Z79.82 Long term (current) use of aspirin; Z82.49 Family history of ischemic heart disease and other diseases of the circulatory system; Z90.49 Acquired absence of other specified parts of digestive tract; Z90.710 Acquired absence of both cervix and uterus; K22.10 Ulcer of esophagus without bleeding; K29.50 Unspecified chronic gastritis without bleeding
CPT/HCPCS: 36415; 43239; 74177; 80048; 80053; 80061; 81003; 82607; 82746; 83036; 83540; 83550; 83690; 83735; 84443; 84484; 85025; 85027; 88305; 88312; 88342; 93005; 96361; 96365; 96375; 96376; 99285; C9113; G0378; J2001; J2270; J2405; J2704; J3475; J7030; Q9967